=== PATIENT | male | born 1980 | race Caucasian/White ===

== ENCOUNTER 2017-06-14 12:48 | Emergency (ER) | payer MEDICAID ==
[~2017-06-14] VITALS: Ht 162.6 cm; Wt 74.8 kg
--- NOTE | 2017-06-14 13:17 | Emergency Room Report ---
History of Present Illness General Chief Complaint: To Be Triaged Source: Patient Present Illness HPI The patient is a 36-year-old male presenting for left-sided rib pain. He states that he was boxing with a friend 2 days ago and is now continuing to have left-sided rib pain. Pain is an 8/10 dull ache and does not radiate. he denies increased pain with breathing or movement. He denies other symptoms including shortness of breath, hemoptysis, CP Allergies: Coded Allergies: No Known Allergies (Unverified , 06/14/17) Patient History Past Medical History: see triage record Pertinent Family History: none Reviewed Nursing Documentation: PMH: Agreed, PSxH: Agreed Review of Systems All Other Systems: negative except mentioned in HPI Physical Exam Sp02 EP Interpretation: reviewed, normal General Appearance: no apparent distress, alert, GCS 15, non-toxic Head: normocephalic, atraumatic Eyes: bilateral eye normal inspection, bilateral eye PERRL ENT: hearing grossly normal, normal pharynx, no angioedema, normal voice Neck: full range of motion, supple/symm/no masses Respiratory: lungs clear, normal breath sounds, no respiratory distress, no accessory muscle use, speaking full sentences, other - ecchymosis over L lateral lower ribs Cardiovascular #1: regular rate, rhythm, no edema Musculoskeletal: back normal, gait/station normal, normal range of motion, non- tender Neurologic: alert, oriented x3, responsive, motor strength/tone normal, sensory intact, speech normal Psychiatric: judgement/insight normal, memory normal, mood/affect normal, no suicidal/homicidal ideation Skin: normal color, no rash, warm/dry, well hydrated Medical Decision Making PA Attestation Dr. Farmer is my supervising physician. Patient management was discussed with my supervising physician Diagnostic Impression: Primary Impression: Rib contusion Qualified Codes: S20.212A - Contusion of left front wall of thorax, initial encounter ER Course The patient is a 36-year-old male presenting for left-sided rib pain. Ddx considered include but not limited to sprain/strain, fracture, contusion, pneumothorax PE: NAD There is tenderness to palpation as well as ecchymosis over the left lower lateral ribs. No flail chest. Normal inspiration lungs CTA bilat Left-sided rib series shows no acute findings. She will be discharged home with prescription for Motrin. ER precautions are given Other X-Ray Diagnostic Results Other X-Ray Diagnostic Results : X-Ray ordered: L rib # of Views/Limited Vs Complete: Complete Indication: Pain EP Interpretation: Yes PA Xray: Interpretation reviewed, by supervising MD, and agrees with findings. Interpretation: no dislocation, no soft tissue swelling, no fractures Impression: No acute disease Electronically Signed by: Kp Mayers PA-C Status: improved Disposition: HOME, SELF-CARE Condition: Improved Scripts Ibuprofen* (MOTRIN*) 600 Mg Tablet 600 MG ORAL Q8H Y for For Pain, #30 TAB 0 Refills Prov: KP MAYERS 06/14/17 KP MAYERS Jun 14, 2017 13:17
[2017-06-14] MEDS ORDERED: IBUPROFEN600 MG ORAL (13:58)
[2017-06-14 14:15] VITALS: BP 120/88
--- NOTE | 2017-06-14 14:33 | Diagnostic Imaging Report ---
Indication: Pain Comparison: None Findings: Left rib series performed with several views. No acute fracture is identified. No pneumothorax seen. No pleural effusions seen. IMPRESSION: Negative exam
== END 2017-06-14 14:16 | disposition home or self-care (01) ==
LOC: EMR 14:02
DX: S20.212A Contusion of left front wall of thorax, initial encounter (principal); X58.XXXA Exposure to other specified factors, initial encounter; Y93.69 Activity, other involving other sports and athletics played as a team or group; Y92.9 Unspecified place or not applicable
CPT/HCPCS: 99283